=== PATIENT | male | born 1965 | race African-American/Black ===

== ENCOUNTER 2016-10-07 22:17 | Emergency (ER) | payer OTHER ==
[~2016-10-07] VITALS: Ht 172.7 cm; Wt 72.6 kg
--- NOTE | ~2016-10-07 | EKG ---
[place] [address] [address] [place] [address] ELECTROCARDIOGRAM REPORT Name: ADALGISA BECERRA LEANNA Room #: [id number] Admission: 10/07/16 Attend Phys: Discharge: 10/07/16 Date of : 69 Report #: [id number] THIS REPORT FOR: //name// [facility] ED Test Date: 2016-10-07 Test Time: 22:22:32 Pat Name: ADALGISA BECERRA Department: Room: Gender: [employer]: : 1965 Requested By: Ham Hunt Order Number: [id number] MD: Cachorro Amanda Measurements Intervals [place] Rate: 91 P: 90 NE: 146 QRS: 72 QRSD: 94 T: 55 QT: 369 QTc: 455 Interpretive Statements Sinus rhythm Baseline wander in lead(s) Compared to ECG 09/19/2014 16:57:57 No significant change was found Electronically Signed On 10-08-2016 8:51:41 CDT by Cachorro Amanda [email or web address] <ELECTRONICALLY SIGNED> By: Cachorro Amanda MD, [facility] 10/08/16 [id number] Cachorro Amanda MD, FACC /EPI
[~2016-10-07 22:17] MED LIST: BACTRIM DS TAB1 EACH PO; KEFLEX500 MG PO; TRAMADOL 50 MG50 MG PO
[2016-10-07] MEDS ORDERED: NOHOMEMEDICATIONS (22:22)
[2016-10-07] MEDS ORDERED: PREDNISONE 10 M10 M1 PO (22:48)
[2016-10-07] MEDS ORDERED: VENTOLIN HFA 1818 GM INH (22:48)
[2016-10-07] MEDS ORDERED: ALBUTEROL2.5 MG/31 INH (22:48)
[2016-10-07 23:07] VITALS: BP 156/93
== END 2016-10-07 23:05 | disposition home or self-care (01) ==
LOC: ER 22:17
DX: J45.901 Unspecified asthma with (acute) exacerbation (principal); F10.99 Alcohol use, unspecified with unspecified alcohol-induced disorder; Z98.890 Other specified postprocedural states; Z91.013 Allergy to seafood

== ENCOUNTER 2020-04-02 23:02 | Emergency (ER) | payer OTHER ==
[~2020-04-02] VITALS: Ht 180.3 cm; Wt 76.2 kg
[~2020-04-02 23:02] MED LIST changes: +ALBUTEROL2.5 MG/31 INH; +NOHOMEMEDICATIONS; +PREDNISONE 10 M10 M1 PO; +VENTOLIN HFA 1818 GM INH
[2020-04-03] MEDS ORDERED: BACTRIM DS TAB1 EACH PO (00:18)
[2020-04-03] MEDS ORDERED: KEFLEX500 M1 PO (00:18)
[2020-04-03 00:37] VITALS: BP 160/96
== END 2020-04-03 01:14 | disposition home or self-care (01) ==
LOC: ER 23:02
DX: L02.211 Cutaneous abscess of abdominal wall (principal); J45.909 Unspecified asthma, uncomplicated; Z91.013 Allergy to seafood; Z79.899 Other long term (current) drug therapy; Z90.49 Acquired absence of other specified parts of digestive tract